=== PATIENT | male | born 1940 | race Caucasian/White ===

== ENCOUNTER 2017-04-30 10:15 | Day surgery (SDC) | payer OTHER ==
[~2017-04-30] VITALS: Ht 172.7 cm; Wt 80.7 kg
[~2017-04-30 10:15] MED LIST: LIPITOR20 MG PO; LOTREL 10/21 CAPSULE PO; SYNTHROID100 MCG PO; TOPROL XL50 MG PO
[2017-04-30 10:55] VITALS: BP 156/74
[2017-04-30] MEDS ORDERED: NORCO 5/3251 TABLET PO (14:09)
[2017-04-30 14:47] VITALS: BP 121/68
[2017-04-30 16:05] VITALS: BP 141/67
[2017-05-05] MEDS ORDERED: LORAZEPAM0.5 MG PO (09:52)
== END 2017-04-30 16:20 | disposition home or self-care (01) ==
LOC: SDC 10:15
PROC: 0DH63UZ Insertion of Feeding Device into Stomach, Percutaneous Approach (ICD-10-PCS; principal; 2017-04-30)
DX: C15.9 Malignant neoplasm of esophagus, unspecified (principal); R13.10 Dysphagia, unspecified; I25.10 Atherosclerotic heart disease of native coronary artery without angina pectoris; E78.5 Hyperlipidemia, unspecified; I10 Essential (primary) hypertension; Z68.27 Body mass index [BMI] 27.0-27.9, adult; E46 Unspecified protein-calorie malnutrition; Z85.46 Personal history of malignant neoplasm of prostate; Z87.891 Personal history of nicotine dependence; Z79.82 Long term (current) use of aspirin; Z82.49 Family history of ischemic heart disease and other diseases of the circulatory system; Z83.79 Family history of other diseases of the digestive system; Z80.0 Family history of malignant neoplasm of digestive organs
CPT/HCPCS: J2250

== ENCOUNTER → 2017-05-05 | Outpatient (CLI) | payer OTHER ==
[~2017-05-05] VITALS: Ht 172.7 cm; Wt 80.7 kg
[~2017-05-05] MED LIST changes: +LORAZEPAM0.5 MG PO; +NORCO 5/3251 TABLET PO
== END | disposition home or self-care (01) ==
LOC: OPR 05-01 10:00 → EDSTATUS 10:00
DX: C77.2 Secondary and unspecified malignant neoplasm of intra-abdominal lymph nodes (principal); C15.9 Malignant neoplasm of esophagus, unspecified; E78.5 Hyperlipidemia, unspecified; I10 Essential (primary) hypertension; I25.10 Atherosclerotic heart disease of native coronary artery without angina pectoris; Z95.5 Presence of coronary angioplasty implant and graft; Z85.46 Personal history of malignant neoplasm of prostate; Z79.82 Long term (current) use of aspirin; Z87.891 Personal history of nicotine dependence
CPT/HCPCS: 77012; 88305; 88341 TC; 88342 TC; J3010

== ENCOUNTER 2017-06-02 15:11 | Inpatient (IN) | payer OTHER ==
[~2017-06-02] VITALS: Ht 172.7 cm; Wt 92.3 kg
[2017-06-02 17:11] LABS: EOSINOPHIL (%) 0.1 % (0-5); HEMATOCRIT 33.8 % (38.0-50.0); IMMATURE GRANULOCYTE (%) 0.5 % (0.0-0.7); IMMATURE GRANULOCYTE COUNT 0.1 K/uL; INSTRUMENT ABS NEUTROPHIL CT 11.9 K/uL; LYMPHOCYTE COUNT 0.9 K/uL (1.0-2.8); MCH 32.4 PG (29.0-34.0); MCHC 35.8 G/DL (30.0-36.0); MCV 90.4 FL (86-99); MEAN PLAT.VOLUME 9.4 uM^3 (9.0-12.4); MONOCYTE (%) 12.2 % (3-12); MONOCYTE COUNT 1.8 K/uL (0-0.8); NEUTROPHIL (%) 81.1 % (45-76); NEUTROPHIL COUNT 11.9 K/uL (1.8-6.4); RBC DIS.WIDTH-CV 12.9 % (11.8-14.6); RBC DIS.WIDTH-SD 42.6 % (39-53); RED BLOOD COUNT 3.74 M/uL (4.00-5.50); WHITE BLOOD COUNT 14.6 K/uL (4.1-10.2)
[2017-06-02 17:21] LABS: PLATELET COUNT 130 K/uL (156-360)
[2017-06-02 17:27] LABS: CHLORIDE 88 mEq/L (99-109); POTASSIUM 4.5 mEq/L (3.7-5.4); SODIUM 125 mEq/L (136-147)
[2017-06-02 17:29] LABS: GLUCOSE 105 mg/dL (70-99)
[2017-06-02 17:31] LABS: ANION GAP 13 MEQ/L (2-14); TOTAL BILIRUBIN 0.9 mg/dL (0.0-1.0)
[2017-06-02 17:33] LABS: ALKALINE PHOSPHATASE 83 IU/L (3-129); GFR ESTIMATE (CALCULATED) > 59 mL/min/
[2017-06-02 17:34] LABS: UREA NITROGEN (BUN) 40 mg/dL (9-23)
[2017-06-02] MEDS ORDERED: OXYCODONE H5 MG/5 ML PO (21:07)
[2017-06-02] MEDS ORDERED: CYCLOBENZAPRINE10 MG PO (21:08)
[2017-06-02] MEDS ORDERED: CLOTRIMAZOLE10 MG PO (21:09)
[2017-06-02] MEDS ORDERED: ZOFRAN4 MG PO (21:11)
[2017-06-02] MEDS ORDERED: LASIX20 MG PO (21:12)
[2017-06-02] MEDS ORDERED: FLAGYL500 MG PO (21:12)
[2017-06-02] MEDS ORDERED: ASPIRIN325 MG PO (21:12)
[2017-06-02] MEDS ORDERED: CIPRO500 MG PO (21:12)
[2017-06-02] MEDS ORDERED: DECADRON4 MG PO (21:13)
[2017-06-02 23:50] VITALS: BP 129/59
[2017-06-03 01:38] LABS: CHLORIDE 90 mEq/L (99-109); POTASSIUM 4.6 mEq/L (3.7-5.4); SODIUM 126 mEq/L (136-147)
[2017-06-03 01:40] LABS: GLUCOSE 184 mg/dL (70-99)
[2017-06-03 01:41] LABS: ANION GAP 19 MEQ/L (2-14)
[2017-06-03 01:43] LABS: GFR ESTIMATE (CALCULATED) 52 mL/min/
[2017-06-03 01:44] LABS: UREA NITROGEN (BUN) 42 mg/dL (9-23)
[2017-06-03 02:00] VITALS: BP 120/60
[2017-06-03 02:25] LABS: PTT 27.1 SEC (25-37)
[2017-06-03 07:30] VITALS: BP 147/67
[2017-06-03 07:50] LABS: HEMATOCRIT 32.2 % (38.0-50.0); MCH 32.3 PG (29.0-34.0); MCHC 35.4 G/DL (30.0-36.0); MCV 91.2 FL (86-99); MEAN PLAT.VOLUME 9.6 uM^3 (9.0-12.4); PLATELET COUNT 143 K/uL (156-360); RBC DIS.WIDTH-CV 13.3 % (11.8-14.6); RBC DIS.WIDTH-SD 44.4 % (39-53); RED BLOOD COUNT 3.53 M/uL (4.00-5.50)
[2017-06-03 08:13] LABS: ALKALINE PHOSPHATASE 69 IU/L (3-129); ANION GAP 15 MEQ/L (2-14); CHLORIDE 93 MEQ/L (99-109); GFR ESTIMATE (CALCULATED) 52 mL/min/; GLUCOSE 142 mg/dL (70-99); POTASSIUM 4.7 MEQ/L (3.7-5.4); SAMPLE HEMOLYSIS CHECK 0; SAMPLE ICTERIC CHECK 0; SAMPLE LIPEMIA CHECK 0; SODIUM 129 MEQ/L (136-147); TOTAL BILIRUBIN 0.7 MG/DL (0.0-1.0); UREA NITROGEN (BUN) 40 mg/dL (9-23)
[2017-06-03 11:28] VITALS: BP 139/60
[2017-06-03 16:32] VITALS: BP 138/72
[2017-06-03 20:10] VITALS: BP 140/72
[2017-06-03 22:45] VITALS: BP 134/70
[2017-06-04] VITALS: BP 145/78
[2017-06-04 05:55] VITALS: BP 132/72
[2017-06-04 06:19] LABS: HEMATOCRIT 32.7 % (38.0-50.0); MCH 31.7 PG (29.0-34.0); MCHC 34.6 G/DL (30.0-36.0); MCV 91.9 FL (86-99); MEAN PLAT.VOLUME 9.7 uM^3 (9.0-12.4); PLATELET COUNT 157 K/uL (156-360); RBC DIS.WIDTH-CV 13.3 % (11.8-14.6); RBC DIS.WIDTH-SD 45.1 % (39-53); RED BLOOD COUNT 3.56 M/uL (4.00-5.50); WHITE BLOOD COUNT 25.6 K/uL (4.1-10.2)
[2017-06-04 06:36] LABS: ANION GAP 12 MEQ/L (2-14); CHLORIDE 97 MEQ/L (99-109); GFR ESTIMATE (CALCULATED) 57 mL/min/; GLUCOSE 109 mg/dL (70-99); POTASSIUM 4.8 MEQ/L (3.7-5.4); SAMPLE HEMOLYSIS CHECK 0; SAMPLE ICTERIC CHECK 0; SAMPLE LIPEMIA CHECK 0; SODIUM 131 MEQ/L (136-147); UREA NITROGEN (BUN) 40 mg/dL (9-23)
[2017-06-04 07:42] LABS: INTERNAL CONTROL VALID? YES
[2017-06-04 07:46] VITALS: BP 143/65
[2017-06-04 11:31] VITALS: BP 150/70
[2017-06-04 16:19] VITALS: BP 150/60
[2017-06-04 20:35] VITALS: BP 141/70
[2017-06-04 21:22] LABS: EOSINOPHIL (%) 0 % (0-5); HEMATOCRIT 33.6 % (38.0-50.0); IMMATURE GRANULOCYTE (%) 0.6 % (0.0-0.7); IMMATURE GRANULOCYTE COUNT 0.1 K/uL; INSTRUMENT ABS NEUTROPHIL CT 18.9 K/uL; LYMPHOCYTE COUNT 0.8 K/uL (1.0-2.8); MCH 33.5 PG (29.0-34.0); MCHC 36.3 G/DL (30.0-36.0); MCV 92.3 FL (86-99); MEAN PLAT.VOLUME 9.5 uM^3 (9.0-12.4); MONOCYTE (%) 9.3 % (3-12); MONOCYTE COUNT 2.1 K/uL (0-0.8); NEUTROPHIL (%) 86.3 % (45-76); NEUTROPHIL COUNT 18.9 K/uL (1.8-6.4); PLATELET COUNT 147 K/uL (156-360); RBC DIS.WIDTH-CV 13.4 % (11.8-14.6); RBC DIS.WIDTH-SD 45.7 % (39-53); RED BLOOD COUNT 3.64 M/uL (4.00-5.50)
[2017-06-05] VITALS (8 sets, daily range): BP systolic 115–172; BP diastolic 66–84
[2017-06-05 06:12] LABS: EOSINOPHIL (%) 0.1 % (0-5); HEMATOCRIT 35.2 % (38.0-50.0); IMMATURE GRANULOCYTE (%) 0.8 % (0.0-0.7); IMMATURE GRANULOCYTE COUNT 0.2 K/uL; INSTRUMENT ABS NEUTROPHIL CT 15.7 K/uL; LYMPHOCYTE COUNT 0.9 K/uL (1.0-2.8); MCH 32.3 PG (29.0-34.0); MCHC 34.7 G/DL (30.0-36.0); MCV 93.1 FL (86-99); MEAN PLAT.VOLUME 9.7 uM^3 (9.0-12.4); MONOCYTE (%) 9.7 % (3-12); MONOCYTE COUNT 1.8 K/uL (0-0.8); NEUTROPHIL (%) 84.3 % (45-76); NEUTROPHIL COUNT 15.7 K/uL (1.8-6.4); PLATELET COUNT 136 K/uL (156-360); RBC DIS.WIDTH-CV 13.4 % (11.8-14.6); RBC DIS.WIDTH-SD 45.8 % (39-53); RED BLOOD COUNT 3.78 M/uL (4.00-5.50); WHITE BLOOD COUNT 18.6 K/uL (4.1-10.2)
[2017-06-05 06:37] LABS: ANION GAP 11 MEQ/L (2-14); CHLORIDE 97 MEQ/L (99-109); GFR ESTIMATE (CALCULATED) 57 mL/min/; GLUCOSE 119 mg/dL (70-99); POTASSIUM 4.6 MEQ/L (3.7-5.4); SAMPLE HEMOLYSIS CHECK 0; SAMPLE ICTERIC CHECK 0; SAMPLE LIPEMIA CHECK 0; SODIUM 131 MEQ/L (136-147); UREA NITROGEN (BUN) 42 mg/dL (9-23)
[2017-06-06 04:50] VITALS: BP 158/70
[2017-06-06 06:15] LABS: EOSINOPHIL (%) 0 % (0-5); HEMATOCRIT 30.6 % (38.0-50.0); IMMATURE GRANULOCYTE (%) 0.8 % (0.0-0.7); IMMATURE GRANULOCYTE COUNT 0.2 K/uL; INSTRUMENT ABS NEUTROPHIL CT 19.1 K/uL; LYMPHOCYTE COUNT 0.6 K/uL (1.0-2.8); MCH 33.3 PG (29.0-34.0); MCHC 35.9 G/DL (30.0-36.0); MCV 92.7 FL (86-99); MEAN PLAT.VOLUME 9.7 uM^3 (9.0-12.4); MONOCYTE (%) 8.5 % (3-12); MONOCYTE COUNT 1.8 K/uL (0-0.8); NEUTROPHIL (%) 87.9 % (45-76); NEUTROPHIL COUNT 19.1 K/uL (1.8-6.4); PLATELET COUNT 112 K/uL (156-360); RBC DIS.WIDTH-CV 13.2 % (11.8-14.6); RBC DIS.WIDTH-SD 45.1 % (39-53); WHITE BLOOD COUNT 21.7 K/uL (4.1-10.2)
[2017-06-06 06:36] LABS: ANION GAP 14 MEQ/L (2-14); CHLORIDE 98 MEQ/L (99-109); GFR ESTIMATE (CALCULATED) 57 mL/min/; GLUCOSE 153 mg/dL (70-99); POTASSIUM 4.5 MEQ/L (3.7-5.4); SAMPLE HEMOLYSIS CHECK 0; SAMPLE ICTERIC CHECK 0; SAMPLE LIPEMIA CHECK 0; SODIUM 132 MEQ/L (136-147); UREA NITROGEN (BUN) 47 mg/dL (9-23)
[2017-06-06 08:08] VITALS: BP 151/67
[2017-06-06 15:52] VITALS: BP 128/78
[2017-06-07 00:03] VITALS: BP 142/83
[2017-06-07 06:33] LABS: HEMATOCRIT 29.2 % (38.0-50.0); MCH 31.5 PG (29.0-34.0); MCHC 33.9 G/DL (30.0-36.0); MEAN PLAT.VOLUME 10.2 uM^3 (9.0-12.4); PLATELET COUNT 128 K/uL (156-360); RBC DIS.WIDTH-CV 13.6 % (11.8-14.6); RBC DIS.WIDTH-SD 45.9 % (39-53); RED BLOOD COUNT 3.14 M/uL (4.00-5.50); WHITE BLOOD COUNT 20.9 K/uL (4.1-10.2)
[2017-06-07 06:58] LABS: ANION GAP 8 MEQ/L (2-14); CHLORIDE 100 MEQ/L (99-109); GFR ESTIMATE (CALCULATED) 45 mL/min/; GLUCOSE 139 mg/dL (70-99); POTASSIUM 4.9 MEQ/L (3.7-5.4); SAMPLE HEMOLYSIS CHECK 0; SAMPLE ICTERIC CHECK 0; SAMPLE LIPEMIA CHECK 0; SODIUM 133 MEQ/L (136-147); UREA NITROGEN (BUN) 51 mg/dL (9-23)
[2017-06-07 07:53] VITALS: BP 133/65
[2017-06-07 12:02] VITALS: BP 148/80
[2017-06-07 16:21] VITALS: BP 135/62
[2017-06-07 21:47] VITALS: BP 141/69
[2017-06-07 22:30] VITALS: BP 126/69
[2017-06-07 23:30] LABS: C DIFF TOXIN NEGATIVE (NEGATIVE)
[2017-06-07 23:31] LABS: PROBE CHECK PASS; SPECIMEN PROCESSING CONTROL PASS
[2017-06-08 06:26] LABS: HEMATOCRIT 27.6 % (38.0-50.0); MCH 33.6 PG (29.0-34.0); MCHC 35.5 G/DL (30.0-36.0); MCV 94.5 FL (86-99); MEAN PLAT.VOLUME 10.2 uM^3 (9.0-12.4); PLATELET COUNT 112 K/uL (156-360); RBC DIS.WIDTH-CV 13.8 % (11.8-14.6); RBC DIS.WIDTH-SD 47.8 % (39-53); RED BLOOD COUNT 2.92 M/uL (4.00-5.50); WHITE BLOOD COUNT 21.9 K/uL (4.1-10.2)
[2017-06-08 07:02] LABS: ANION GAP 9 MEQ/L (2-14); CHLORIDE 101 MEQ/L (99-109); GFR ESTIMATE (CALCULATED) 24 mL/min/; GLUCOSE 130 mg/dL (70-99); SAMPLE HEMOLYSIS CHECK 0; SAMPLE ICTERIC CHECK 0; SAMPLE LIPEMIA CHECK 0; SODIUM 134 MEQ/L (136-147); UREA NITROGEN (BUN) 67 mg/dL (9-23); VANCOMYCIN, TROUGH 14.7 MCG/ML (10-20)
[2017-06-08 07:30] VITALS: BP 137/63
[2017-06-08 16:33] VITALS: BP 145/76
[2017-06-08 18:36] LABS: C DIFF TOXIN ND (NEGATIVE)
[2017-06-08 22:25] VITALS: BP 155/69
[2017-06-09 06:56] LABS: HEMATOCRIT 25.9 % (38.0-50.0); MCH 31.7 PG (29.0-34.0); MCHC 33.2 G/DL (30.0-36.0); MCV 95.6 FL (86-99); MEAN PLAT.VOLUME 10.3 uM^3 (9.0-12.4); PLATELET COUNT 111 K/uL (156-360); RBC DIS.WIDTH-CV 14.2 % (11.8-14.6); RED BLOOD COUNT 2.71 M/uL (4.00-5.50); WHITE BLOOD COUNT 22.8 K/uL (4.1-10.2)
[2017-06-09 07:32] LABS: ANION GAP 14 MEQ/L (2-14); CHLORIDE 101 MEQ/L (99-109); POTASSIUM 5.9 MEQ/L (3.7-5.4); SAMPLE HEMOLYSIS CHECK 0; SAMPLE ICTERIC CHECK 0; SAMPLE LIPEMIA CHECK 0; SODIUM 136 MEQ/L (136-147); UREA NITROGEN (BUN) 89 mg/dL (9-23)
[2017-06-09 07:33] LABS: GFR ESTIMATE (CALCULATED) 17 mL/min/; GLUCOSE 95 mg/dL (70-99); VANCOMYCIN, TROUGH 24.2 MCG/ML (10-20)
[2017-06-09 08:14] VITALS: BP 148/66
[2017-06-09 12:23] VITALS: BP 144/70
[2017-06-09 15:29] VITALS: BP 135/67
[2017-06-09 15:31] LABS: EOSINOPHIL (%) 0 % (0-5); IMMATURE GRANULOCYTE (%) 0.8 % (0.0-0.7); IMMATURE GRANULOCYTE COUNT 0.2 K/uL; INSTRUMENT ABS NEUTROPHIL CT 20.3 K/uL; LYMPHOCYTE COUNT 0.4 K/uL (1.0-2.8); MONOCYTE (%) 7.8 % (3-12); MONOCYTE COUNT 1.8 K/uL (0-0.8); NEUTROPHIL (%) 89.6 % (45-76); NEUTROPHIL COUNT 20.3 K/uL (1.8-6.4)
[2017-06-09 16:22] LABS: ANION GAP 13 MEQ/L (2-14); CHLORIDE 102 MEQ/L (99-109); GFR ESTIMATE (CALCULATED) 15 mL/min/; GLUCOSE 95 mg/dL (70-99); SAMPLE HEMOLYSIS CHECK 0; SAMPLE ICTERIC CHECK 0; SAMPLE LIPEMIA CHECK 0; SODIUM 137 MEQ/L (136-147); UREA NITROGEN (BUN) 99 mg/dL (9-23)
[2017-06-09 16:51] LABS: HEMATOLOGY COMMENT 1 SN; PLAT.SUFFICIENCY DECREASED
[2017-06-09 23:05] VITALS: BP 165/73
[2017-06-10] VITALS (9 sets, daily range): BP systolic 118–153; BP diastolic 66–79
[2017-06-10 05:28] LABS: CARBOXY HGB 2.9 % (0-5); METHEMOGLOBIN 1.9 % (0-1.5); PCO2 38 mm Hg (35-45); PO2 65 mm Hg (80-100); pH 7.37 (7.35-7.45)
[2017-06-10 05:29] LABS: COMMENTS - BLOOD GASES C+A+; DEVICE NC; O2 FLOW 4 L/MIN; SITE LR; TOTAL RESP RATE 24 resp/min
[2017-06-10 07:00] LABS: HEMATOCRIT 25.2 % (38.0-50.0); MCH 32.8 PG (29.0-34.0); MCHC 34.1 G/DL (30.0-36.0); MCV 96.2 FL (86-99); MEAN PLAT.VOLUME 10.8 uM^3 (9.0-12.4); PLATELET COUNT 115 K/uL (156-360); RBC DIS.WIDTH-CV 14.7 % (11.8-14.6); RBC DIS.WIDTH-SD 51.1 % (39-53); RED BLOOD COUNT 2.62 M/uL (4.00-5.50); WHITE BLOOD COUNT 22.1 K/uL (4.1-10.2)
[2017-06-10 08:07] LABS: ANION GAP 15 MEQ/L (2-14); CHLORIDE 101 MEQ/L (99-109); GFR ESTIMATE (CALCULATED) 12 mL/min/; GLUCOSE 89 mg/dL (70-99); SAMPLE HEMOLYSIS CHECK 0; SAMPLE ICTERIC CHECK 0; SAMPLE LIPEMIA CHECK 0; SODIUM 138 MEQ/L (136-147)
[2017-06-10 08:08] LABS: POTASSIUM 6.1 MEQ/L (3.7-5.4); UREA NITROGEN (BUN) 106 mg/dL (9-23)
[2017-06-10 10:39] LABS: POINT-OF-CARE USER ID 515034806
[2017-06-10 17:09] LABS: METH RESISTANT S AUREUS PCR NEGATIVE (NEGATIVE)
[2017-06-10 17:15] LABS: PROBE CHECK PASS; SPECIMEN PROCESSING CONTROL PASS
[2017-06-10 19:16] LABS: EOSINOPHIL (%) 0 % (0-5); HEMATOCRIT 26.3 % (38.0-50.0); IMMATURE GRANULOCYTE (%) 1.3 % (0.0-0.7); IMMATURE GRANULOCYTE COUNT 0.3 K/uL; INSTRUMENT ABS NEUTROPHIL CT 23.3 K/uL; LYMPHOCYTE COUNT 0.2 K/uL (1.0-2.8); MCH 32.1 PG (29.0-34.0); MCHC 33.1 G/DL (30.0-36.0); MEAN PLAT.VOLUME 10.6 uM^3 (9.0-12.4); MONOCYTE COUNT 0.5 K/uL (0-0.8); NEUTROPHIL (%) 95.6 % (45-76); NEUTROPHIL COUNT 23.3 K/uL (1.8-6.4); PLATELET COUNT 113 K/uL (156-360); RBC DIS.WIDTH-CV 14.7 % (11.8-14.6); RBC DIS.WIDTH-SD 52.6 % (39-53); RED BLOOD COUNT 2.71 M/uL (4.00-5.50); WHITE BLOOD COUNT 24.3 K/uL (4.1-10.2)
[2017-06-10 19:27] LABS: ANION GAP 15 MEQ/L (2-14); CHLORIDE 102 MEQ/L (99-109); POTASSIUM 5.1 MEQ/L (3.7-5.4); SAMPLE HEMOLYSIS CHECK 0; SAMPLE ICTERIC CHECK 0; SAMPLE LIPEMIA CHECK 0; SODIUM 138 MEQ/L (136-147); TOTAL BILIRUBIN 1.3 MG/DL (0.0-1.0)
[2017-06-10 19:33] LABS: ALKALINE PHOSPHATASE 59 IU/L (3-129); GFR ESTIMATE (CALCULATED) 16 mL/min/; GLUCOSE 229 mg/dL (70-99); UREA NITROGEN (BUN) 81 mg/dL (9-23)
[2017-06-11] VITALS: BP 107/64
[2017-06-11 04:00] VITALS: BP 127/72
[2017-06-11 04:49] LABS: EOSINOPHIL (%) 0 % (0-5); HEMATOCRIT 24.9 % (38.0-50.0); IMMATURE GRANULOCYTE (%) 1.6 % (0.0-0.7); IMMATURE GRANULOCYTE COUNT 0.4 K/uL; INSTRUMENT ABS NEUTROPHIL CT 23.1 K/uL; LYMPHOCYTE COUNT 0.4 K/uL (1.0-2.8); MCH 32.8 PG (29.0-34.0); MCHC 34.5 G/DL (30.0-36.0); MEAN PLAT.VOLUME 10.5 uM^3 (9.0-12.4); MONOCYTE COUNT 1.8 K/uL (0-0.8); NEUTROPHIL (%) 89.8 % (45-76); NEUTROPHIL COUNT 23.1 K/uL (1.8-6.4); NRBC (%) 0.1 /100 WBC (0-0); PLATELET COUNT 112 K/uL (156-360); RBC DIS.WIDTH-CV 14.4 % (11.8-14.6); RED BLOOD COUNT 2.62 M/uL (4.00-5.50); WHITE BLOOD COUNT 25.7 K/uL (4.1-10.2)
[2017-06-11 05:12] LABS: CHLORIDE 102 mEq/L (99-109); POTASSIUM 5.6 mEq/L (3.7-5.4); SODIUM 140 mEq/L (136-147)
[2017-06-11 05:14] LABS: GLUCOSE 137 mg/dL (70-99)
[2017-06-11 05:16] LABS: ANION GAP 19 MEQ/L (2-14); TOTAL BILIRUBIN 1.6 mg/dL (0.0-1.0)
[2017-06-11 05:18] LABS: ALKALINE PHOSPHATASE 63 IU/L (3-129); GFR ESTIMATE (CALCULATED) 12 mL/min/
[2017-06-11 05:20] LABS: UREA NITROGEN (BUN) 106 mg/dL (9-23)
[2017-06-11 10:42] VITALS: BP 90/59
[2017-06-11 12:00] VITALS: BP 116/56
[2017-06-11 14:56] LABS: AHBS INDEX 0.12; HBSG INDEX 0.15; HEPATITIS B SURFACE ANTIBODY Nonreactive
[2017-06-11 16:00] VITALS: BP 109/59
[2017-06-11 20:00] VITALS: BP 113/71
[2017-06-12 00:28] VITALS: BP 144/62
[2017-06-12 04:37] VITALS: BP 139/62
[2017-06-12 04:53] LABS: EOSINOPHIL (%) 0 % (0-5); HEMATOCRIT 24.3 % (38.0-50.0); IMMATURE GRANULOCYTE (%) 1.1 % (0.0-0.7); IMMATURE GRANULOCYTE COUNT 0.3 K/uL; INSTRUMENT ABS NEUTROPHIL CT 21.3 K/uL; LYMPHOCYTE COUNT 0.7 K/uL (1.0-2.8); MCH 32.4 PG (29.0-34.0); MCHC 34.2 G/DL (30.0-36.0); MCV 94.9 FL (86-99); MEAN PLAT.VOLUME 10.8 uM^3 (9.0-12.4); MONOCYTE (%) 8.3 % (3-12); NEUTROPHIL (%) 87.6 % (45-76); NEUTROPHIL COUNT 21.3 K/uL (1.8-6.4); NRBC (%) 0.2 /100 WBC (0-0); PLATELET COUNT 116 K/uL (156-360); RBC DIS.WIDTH-CV 14.7 % (11.8-14.6); RBC DIS.WIDTH-SD 50.2 % (39-53); RED BLOOD COUNT 2.56 M/uL (4.00-5.50); WHITE BLOOD COUNT 24.4 K/uL (4.1-10.2)
[2017-06-12 05:08] LABS: CHLORIDE 103 mEq/L (99-109); POTASSIUM 5.2 mEq/L (3.7-5.4); SODIUM 140 mEq/L (136-147)
[2017-06-12 05:11] LABS: ANION GAP 16 MEQ/L (2-14)
[2017-06-12 05:13] LABS: CHLORIDE 103 mEq/L (99-109); GFR ESTIMATE (CALCULATED) 12 mL/min/; POTASSIUM 5.2 mEq/L (3.7-5.4); SODIUM 141 mEq/L (136-147)
[2017-06-12 05:14] LABS: UREA NITROGEN (BUN) 92 mg/dL (9-23)
[2017-06-12 05:15] LABS: GLUCOSE 101 mg/dL (70-99); GLUCOSE 99 mg/dL (70-99)
[2017-06-12 05:16] LABS: ANION GAP 17 MEQ/L (2-14)
[2017-06-12 05:18] LABS: GFR ESTIMATE (CALCULATED) 12 mL/min/
[2017-06-12 05:19] LABS: UREA NITROGEN (BUN) 94 mg/dL (9-23)
[2017-06-12 07:28] VITALS: BP 123/63
[2017-06-12 12:18] VITALS: BP 118/57
[2017-06-12 14:49] VITALS: BP 126/60
[2017-06-12 19:22] VITALS: BP 130/60
[2017-06-13] VITALS (7 sets, daily range): BP systolic 95–147; BP diastolic 50–63
[2017-06-13 07:06] LABS: EOSINOPHIL (%) 0 % (0-5); HEMATOCRIT 25.2 % (38.0-50.0); IMMATURE GRANULOCYTE (%) 1.7 % (0.0-0.7); IMMATURE GRANULOCYTE COUNT 0.5 K/uL; INSTRUMENT ABS NEUTROPHIL CT 25.5 K/uL; LYMPHOCYTE COUNT 0.4 K/uL (1.0-2.8); MCH 33.6 PG (29.0-34.0); MCHC 34.5 G/DL (30.0-36.0); MCV 97.3 FL (86-99); MEAN PLAT.VOLUME 10.9 uM^3 (9.0-12.4); MONOCYTE (%) 2.7 % (3-12); MONOCYTE COUNT 0.7 K/uL (0-0.8); NEUTROPHIL (%) 94.1 % (45-76); NEUTROPHIL COUNT 25.5 K/uL (1.8-6.4); NRBC (%) 0.2 /100 WBC (0-0); PLATELET COUNT 121 K/uL (156-360); RBC DIS.WIDTH-CV 15.4 % (11.8-14.6); RBC DIS.WIDTH-SD 52.8 % (39-53); RED BLOOD COUNT 2.59 M/uL (4.00-5.50); WHITE BLOOD COUNT 27.1 K/uL (4.1-10.2)
[2017-06-13 07:36] LABS: ANION GAP 16 MEQ/L (2-14); CHLORIDE 99 MEQ/L (99-109); GFR ESTIMATE (CALCULATED) 13 mL/min/; GLUCOSE 146 mg/dL (70-99); POTASSIUM 4.8 MEQ/L (3.7-5.4); SAMPLE HEMOLYSIS CHECK 0; SAMPLE ICTERIC CHECK 0; SAMPLE LIPEMIA CHECK 0; SODIUM 139 MEQ/L (136-147); UREA NITROGEN (BUN) 89 mg/dL (9-23)
[2017-06-14 04:49] VITALS: BP 117/51
[2017-06-14 06:10] LABS: BASOPHIL COUNT 0.1 K/uL (0-0.1); EOSINOPHIL (%) 0 % (0-5); IMMATURE GRANULOCYTE (%) 1.9 % (0.0-0.7); IMMATURE GRANULOCYTE COUNT 0.6 K/uL; INSTRUMENT ABS NEUTROPHIL CT 29.3 K/uL; LYMPHOCYTE COUNT 0.4 K/uL (1.0-2.8); MEAN PLAT.VOLUME 10.9 uM^3 (9.0-12.4); MONOCYTE (%) 3.9 % (3-12); MONOCYTE COUNT 1.2 K/uL (0-0.8); NEUTROPHIL (%) 92.6 % (45-76); NEUTROPHIL COUNT 29.3 K/uL (1.8-6.4); PLATELET COUNT 130 K/uL (156-360)
[2017-06-14 06:24] LABS: ANION GAP 15 MEQ/L (2-14); CHLORIDE 103 MEQ/L (99-109); GFR ESTIMATE (CALCULATED) 15 mL/min/; GLUCOSE 125 mg/dL (70-99); POTASSIUM 5.5 MEQ/L (3.7-5.4); SAMPLE HEMOLYSIS CHECK 0; SAMPLE ICTERIC CHECK 0; SAMPLE LIPEMIA CHECK 0; SODIUM 141 MEQ/L (136-147); UREA NITROGEN (BUN) 67 mg/dL (9-23)
[2017-06-14 06:40] LABS: HEMATOCRIT 25.8 % (38.0-50.0); MCH 33.6 PG (29.0-34.0); MCHC 33.3 G/DL (30.0-36.0); MCV 100.8 FL (86-99); NRBC (%) 0.2 /100 WBC (0-0); RBC DIS.WIDTH-CV 15.9 % (11.8-14.6); RBC DIS.WIDTH-SD 56.9 % (39-53); RED BLOOD COUNT 2.56 M/uL (4.00-5.50); WHITE BLOOD COUNT 31.7 K/uL (4.1-10.2)
[2017-06-14 12:31] VITALS: BP 84/47
[2017-06-14 16:49] VITALS: BP 96/54
[2017-06-14 19:16] VITALS: BP 80/40
[2017-06-14 23:16] VITALS: BP 82/42
== END 2017-06-15 00:36 | DRG 871 ==
LOC: EME 15:11 → EDOF 21:19 → 5EAST 21:19 → 4EAST 21:19 → ENRESERV 21:20 → EDOF 06-03 00:25 → 5EAST 06-03 00:25 → ENRESERV 06-10 06:13 → 4EAST 06-10 07:34 → ENRESERV 06-10 14:07 → 4WEST 06-10 14:20 → ENRESERV 06-11 22:59 → 4EAST 06-11 23:32
PROVIDERS: Emergency Medicine; Hospitalist; Internal Medicine; Internal Medicine Medical Oncology; Internal Medicine Nephrology; Student in an Organized Health Care Education/Training Program
PROC: 02HV33Z Insertion of Infusion Device into Superior Vena Cava, Percutaneous Approach (ICD-10-PCS; principal; 2017-06-10)
PROC: 5A1D60Z (ICD-10-PCS; 2017-06-10)
DX: A41.9 Sepsis, unspecified organism (principal); R65.20 Severe sepsis without septic shock; J69.0 Pneumonitis due to inhalation of food and vomit; N17.0 Acute kidney failure with tubular necrosis; J96.01 Acute respiratory failure with hypoxia; Z66 Do not resuscitate; I95.9 Hypotension, unspecified; R19.7 Diarrhea, unspecified; T36.0X5A Adverse effect of penicillins, initial encounter; E87.5 Hyperkalemia; I11.0 Hypertensive heart disease with heart failure; I50.43 Acute on chronic combined systolic (congestive) and diastolic (congestive) heart failure; J44.1 Chronic obstructive pulmonary disease with (acute) exacerbation; C15.5 Malignant neoplasm of lower third of esophagus; C79.9 Secondary malignant neoplasm of unspecified site; R59.0 Localized enlarged lymph nodes; E87.2 Acidosis; E87.1 Hypo-osmolality and hyponatremia; E86.0 Dehydration; D69.6 Thrombocytopenia, unspecified; E03.9 Hypothyroidism, unspecified; D63.0 Anemia in neoplastic disease; I25.10 Atherosclerotic heart disease of native coronary artery without angina pectoris; E78.00 Pure hypercholesterolemia, unspecified; E88.09 Other disorders of plasma-protein metabolism, not elsewhere classified; I89.0 Lymphedema, not elsewhere classified; K21.9 Gastro-esophageal reflux disease without esophagitis; N13.30 Unspecified hydronephrosis; E66.9 Obesity, unspecified; Z68.33 Body mass index [BMI] 33.0-33.9, adult; Z85.46 Personal history of malignant neoplasm of prostate; Z87.891 Personal history of nicotine dependence; Z92.3 Personal history of irradiation; Z93.1 Gastrostomy status; Z95.1 Presence of aortocoronary bypass graft; Z95.5 Presence of coronary angioplasty implant and graft
CPT/HCPCS: 36600; 71010; 71020; 71250; 74000; 76770; 78582; 80048; 80048 91; 80053; 80069; 80202; 81003; 82040; 82436; 82570; 82803; 82948; 83605; 83880; 83930; 83935; 84100; 84133; 84156; 84300; 84540; 85025; 85027; 85379; 85730; 86706; 87040; 87070; 87177; 87205; 87340; 87449; 87493; 87506; 87641; 89190; 93005; 93970; 94010; 94640; 94640 76; 94667; 94668; 94760; 94799; 99202; 99281; 99285; A9540; A9567; C1788; C9113; G0103; J0456; J0696; J1170; J1644; J1650; J1815; J1940; J2020; J2060; J2270; J2543; J2765; J2920; J2930; J3370; J7030; J7050; J7512; P9047; S0028; S0030